=== PATIENT | male | born 1950 | race Caucasian/White ===

== ENCOUNTER → 2016-08-28 | Outpatient (CLI) | payer OTHER ==
--- NOTE | 2016-08-28 17:09 | REP ---
The left rib series: Five views including PA chest: History: Contusion to the left posterior thorax. Findings: PA chest radiograph is unremarkable. There is no evidence of pneumothorax or hydrothorax. Mediastinum is not widened. Heart size is normal. Multiple views of the left rib cage show fractures of the posterolateral left 7th and 8th ribs nondisplaced. No other abnormality. Impression: Left posterolateral 7th and 8th rib fractures nondisplaced. No pneumothorax or hydrothorax seen. Signed by Lebron Rivera MD 08/29/2016 09:39 A
== END ==
LOC: M ADAMS 10:48
PROVIDERS: ATTEND Physician Assistant Medical
DX: S22.42XA Multiple fractures of ribs, left side, initial encounter for closed fracture (principal); W00.9XXA Unspecified fall due to ice and snow, initial encounter; Y92.9 Unspecified place or not applicable; Y93.9 Activity, unspecified; Y99.8 Other external cause status; X58.XXXA Exposure to other specified factors, initial encounter